=== PATIENT | female | born 1965 | race Caucasian/White ===

== ENCOUNTER 2016-06-26 14:08 | Emergency (ER) | payer MEDICARE, SELFPAY ==
[2016-06-26 14:28] VITALS: BP 135/80
--- NOTE | 2016-06-26 14:45 | EDM.PDOC ---
ED HISTORY OF PRESENT ILLNESS - General Chief Complaint: Respiratory Problem Stated Complaint: ADMIT FROM CLINIC-SHORTNESS OF BREATH Time Seen by Provider: 06/26/16 14:36 Source: Reports: Patient, Provider, RN notes reviewed History Limitations: Reports: No limitations - History of Present Illness INITIAL COMMENTS - FREE TEXT/NARRATIVE: 50-year-old female presents emergency department day complaint of shortness of breath, she was evaluated by her primary care provider in the clinic EKG was performed I did discuss case provider she recommended she come emergency department for further evaluation. Patient states she's been short of breath for the last 3 days shortness of breath gets worse with exertion she does have some epigastric discomfort and has noticed some edema in her legs that has been accumulating over the last 3 days - Related Data Allergies/ADRs: Allergies Allergy/AdvReac Type Severity Reaction Status Date / Time Penicillins Allergy Rash Verified 06/27/15 11:22 tetanus and diphtheria Allergy Swelling Verified 06/27/15 11:22 toxoids [Tetanus&Diphtheria Toxoid] acetaminophen [From Vicodin] AdvReac Nausea and Verified 06/27/15 11:22 Vomiting codeine AdvReac Nausea and Verified 06/27/15 11:22 Vomiting erythromycin base AdvReac Stomach Verified 06/27/15 11:22 [Erythromycin Base] Upset hydrocodone bitartrate AdvReac Nausea and Verified 06/27/15 11:22 [From Vicodin] Vomiting hydromorphone HCl AdvReac Nausea and Verified 06/27/15 11:22 [From Dilaudid] Vomiting oxycodone HCl [From Percocet] AdvReac Nausea and Verified 06/27/15 11:22 Vomiting Home Meds: Home Meds Acetaminophen [Tylenol Extra Strength] 1,000 mg PO ASDIRECTED PRN 10/29/12 [ History] Desloratadine/Pseudoephedrine [Clarinex-D 12 Hour] 1 tab PO Q12HR PRN 10/29/12 [ History] SUMAtriptan Succinate [Imitrex] 50 mg PO ASDIRECTED PRN 10/29/12 [History] Topiramate [Topiramate] 25 tab PO DAILY 01/23/15 [History] Topiramate [Topiramate] 50 mg PO BEDTIME 06/27/15 [History] Vit C/Carvajal & Celery Ex/Grp E [Tart Carvajal] 1 tab PO DAILY 06/27/15 [History] Calcium Carbonate [Calcium] 500 mg PO BID 06/26/16 [History] Glucosam/Chondroitin/Diet Cb25 [Trepadone Capsule] 1,500 mg PO DAILY 06/26/16 [ History] Sertraline [Zoloft] 50 mg PO DAILY 06/26/16 [History] Past Medical History Gastrointestinal History: Reports: GERD Neurological History: Reports: Other (see below) Other Neuro History: temporal artery biopsy Psychiatric History: Reports: Anxiety - Infectious Disease History Infectious Disease History: Reports: Chicken pox - Past Surgical History HEENT Surgical History: Reports: Other (see below) Other HEENT Surgeries/Procedures: temporal artery biopsy GI Surgical History: Reports: Cholecystectomy, Hernia repair/other, Rashmi fundoplication Social & Family History - Tobacco Use Smoking Status *Q: Former Smoker Years of Tobacco use: 29 Used Tobacco, but Quit: Yes Month Tobacco Last Used: 20 Second Hand Smoke Exposure: No - Caffeine Use Caffeine Use: Reports: Coffee, Tea - Alcohol Use Days Per Week of Alcohol Use: 0 - Recreational Drug Use Recreational Drug Use: No ED ROS GENERAL - Review of Systems Review Of Systems: See Below Constitutional: Reports: no symptoms HEENT: Reports: No symptoms Respiratory: Reports: Shortness of Breath Cardiovascular: Reports: Dyspnea on exertion. Denies: Chest pain GI/Abdominal: Reports: Abdominal pain (Epigastric pain). Denies: Nausea, Vomiting : Reports: no symptoms Musculoskeletal: Reports: no symptoms Skin: Reports: no symptoms ED EXAM, GENERAL - Physical Exam Exam: See Below Free Text/Narrative:: General: Female, not in any distress, alert and oriented x3 HEENT: head is atraumatic normocephalic, eyes pupils equal round reactive to light, sclera clear no conjunctivitis appreciated. Ears tympanic membranes clear and montalvo landmarks and light reflex are present bilaterally canals are clear. Nose no septal deviation, nares are clear, no blood present. Mouth mucosa is moist and pink no erythema or exudate noted in soft palate, tongue is midline uvula is midline, dentition is intact. Neck: Supple no thyromegaly no tracheal deviation. Nodes: Cervical nodes subclavicular nodes nontender no palpable lymphadenopathy noted. Lungs: clear to auscultation bilaterally with symmetrical respirations, no adventitious noise appreciated. CV: Regular rate and rhythm S1 and S2 appreciated no murmurs rubs or gallops noted. Abdomen: Soft, nontender, no palpable masses or organomegaly appreciated, no distention no guarding bowel sounds are present, . Neuro: Cranial nerves II through XII grossly intact Skin: Warm and dry, intact Extremities: Trace edema appreciated lower extremities, pedal pulse is +2. Course - Vital Signs Last Recorded V/S: Last Vital Signs Temp 97.7 F 06/26/16 14:28 Pulse 73 06/26/16 14:28 Resp 16 06/26/16 14:28 BP 135/80 06/26/16 14:28 Pulse Ox 98 06/26/16 14:28 - Orders/Labs/Meds Orders: Active Orders 24 hr Category Date Time Status Cardiac Monitoring [RC] .As Directed Care 06/26/16 14:42 Active Chest 2V [CR] Stat Exams 06/26/16 14:42 Taken Labs: Laboratory Tests 06/26/16 06/26/16 06/26/16 Range/Units 14:52 14:52 14:52 WBC 6.9 (4.5-11.0) K/uL RBC 4.42 (3.30-5.50) M/uL Hgb 12.8 (12.0-15.0) g/dL Hct 40.3 (36.0-48.0) % MCV 91 (80-98) fL MCH 29 (27-31) pg MCHC 32 (32-36) % Plt Count 323 (150-400) K/uL Neut % (Auto) 51 (36-66) % Lymph % (Auto) 37 (24-44) % [place] % (Auto) 9 H (2-6) % Eos % (Auto) 2 (2-4) % Baso % (Auto) 1 (0-1) % PT 9.8 (9.5-12.0) sec INR 0.93 (0.80-1.20) APTT 27.4 (27.0-36.0) sec D-Dimer, Quantitative 302 (0.0-400.0) ng/mL Sodium (140-148) mmol/L Potassium (3.6-5.2) mmol/L Chloride (100-108) mmol/L Carbon Dioxide (21-32) mmol/L Anion Gap (5.0-14.0) mmol/L BUN (7-18) mg/dL Creatinine (0.6-1.0) mg/dL Est Cr Clr Drug Dosing mL/min Estimated GFR (MDRD) (>60) Glucose (74-106) mg/dL Calcium (8.5-10.1) mg/dL Total Bilirubin (0.2-1.0) mg/dL AST (15-37) U/L ALT (12-78) U/L Alkaline Phosphatase (46-116) U/L Troponin I (0.000-0.056) ng/mL Zcg-H-Kqjzmjbgwkh Pept (5-125) pg/mL Total Protein (6.4-8.2) g/dL Albumin (3.4-5.0) g/dL Globulin (2.3-3.5) g/dL Albumin/Globulin Ratio (1.2-2.2) 06/26/16 Range/Units 14:52 WBC (4.5-11.0) K/uL RBC (3.30-5.50) M/uL Hgb (12.0-15.0) g/dL Hct (36.0-48.0) % MCV (80-98) fL MCH (27-31) pg MCHC (32-36) % Plt Count (150-400) K/uL Neut % (Auto) (36-66) % Lymph % (Auto) (24-44) % [place] % (Auto) (2-6) % Eos % (Auto) (2-4) % Baso % (Auto) (0-1) % PT (9.5-12.0) sec INR (0.80-1.20) APTT (27.0-36.0) sec D-Dimer, Quantitative (0.0-400.0) ng/mL Sodium 143 (140-148) mmol/L Potassium 3.8 (3.6-5.2) mmol/L Chloride 107 (100-108) mmol/L Carbon Dioxide 29 (21-32) mmol/L Anion Gap 6.7 (5.0-14.0) mmol/L BUN 18 (7-18) mg/dL Creatinine 0.9 (0.6-1.0) mg/dL Est Cr Clr Drug Dosing 68.45 mL/min Estimated GFR (MDRD) > 60 (>60) Glucose 113 H (74-106) mg/dL Calcium 8.4 L (8.5-10.1) mg/dL Total Bilirubin 0.2 (0.2-1.0) mg/dL AST 19 (15-37) U/L ALT 29 (12-78) U/L Alkaline Phosphatase 100 (46-116) U/L Troponin I < 0.017 (0.000-0.056) ng/mL Xas-C-Zoogavnwlsz Pept 104 (5-125) pg/mL Total Protein 7.4 (6.4-8.2) g/dL Albumin 3.5 (3.4-5.0) g/dL Globulin 3.9 H (2.3-3.5) g/dL Albumin/Globulin Ratio 0.9 L (1.2-2.2) Departure - Departure Time of Disposition: 15:37 Disposition: Home, Self-Care 01 Condition: good Clinical Impression: Physical deconditioning Forms: ED Department Discharge Additional Instructions: Try the compression hose in combination with exercise program, Please followup with your primary care provider in 3-5 days if not better, please call return to the emergency department with worsening of symptoms. - My Orders Last 24 Hours: My Active Orders 06/26/16 14:42 Cardiac Monitoring [RC] .As Directed Chest 2V [CR] Stat - Assessment/Plan Last 24 Hours: My Active Orders 06/26/16 14:42 Cardiac Monitoring [RC] .As Directed Chest 2V [CR] Stat Plan: Assessment Acuity = acute Site and laterality = shortness of breath with leg edema Etiology = probably related to deconditioning and venous insufficiency Manifestations = none Location of injury = home Lab values = CBC, CMP, troponin, BNP, d-dimer within normal limits, chest x-ray I did review films myself I cannot appreciate any acute process, the official read from radiology is pending Plan I did review lab work with her she is going to try an exercise program with compression hose of primary care 3-5 days if no improvement Patient was in agreement with the plan all questions were answered, they were instructed to return to the emergency department or call for worsening symptoms. This note was dictated using [employer] English voice recognition software please call with any questions.
--- NOTE | 2016-06-27 09:20 | CR ---
Heart size within normal limits. No focal consolidation. Pulmonary vasculature within normal limits
== END 2016-06-26 15:47 | disposition home or self-care (01) ==
LOC: JP.ED 14:08
DX: R53.81 Other malaise (principal); K21.9 Gastro-esophageal reflux disease without esophagitis; F41.9 Anxiety disorder, unspecified; Z90.49 Acquired absence of other specified parts of digestive tract; Z98.890 Other specified postprocedural states; Z79.899 Other long term (current) drug therapy; Z87.891 Personal history of nicotine dependence; Z88.1 Allergy status to other antibiotic agents; Z88.0 Allergy status to penicillin; Z88.5 Allergy status to narcotic agent
CPT/HCPCS: 36415; 71020; 71020-26; 80053; 83880; 84484; 85025; 85379; 85610; 85730; 99282; 99285